=== PATIENT | male | born 1995 | race African-American/Black ===

== ENCOUNTER 2016-11-23 01:20 | Emergency (ER) | payer MEDICAID ==
[2016-11-23 01:35] VITALS: BP 124/79
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
== END 2016-11-23 05:26 | disposition left against medical advice (07) ==
LOC: ER 01:20
DX: N50.812 Left testicular pain (principal); F17.200 Nicotine dependence, unspecified, uncomplicated
CPT/HCPCS: 76870; 93976; 99281

== ENCOUNTER 2016-12-04 14:48 | Emergency (ER) | payer MEDICAID ==
[2016-12-04 14:56] VITALS: BP 119/74
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
== END 2016-12-04 17:40 | disposition home or self-care (01) ==
LOC: ER 14:48
DX: S39.012A Strain of muscle, fascia and tendon of lower back, initial encounter (principal); N50.812 Left testicular pain; V19.9XXA Pedal cyclist (driver) (passenger) injured in unspecified traffic accident, initial encounter
CPT/HCPCS: 99283

== ENCOUNTER 2017-05-05 09:16 | Emergency (ER) | payer MEDICAID ==
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
[2017-05-05] MEDS ORDERED: PENICILLIN G BENZATHINE 1.2 MILLION UNIT/2 ML DISP.SYRIN IM ONE (11:30)
[2017-05-05 11:53] VITALS: BP 120/79
== END 2017-05-05 11:53 | disposition home or self-care (01) ==
LOC: ER 09:16
DX: J02.0 Streptococcal pharyngitis (principal)
CPT/HCPCS: 99283; 96372; 87880; J0561

== ENCOUNTER 2018-01-07 11:37 | Emergency (ER) | payer MEDICAID ==
[2018-01-07] MEDS ORDERED: HYDROCODONE/ACETAMINOPHEN 5-325 MG TABLET PO ONE (12:06)
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
[2018-01-07] MEDS ORDERED: LIDOCAINE 4%/TETRACAINE 0.5%/EPI 0.18% 5 ML TOPICAL SOLN TOP ONE (14:12)
[2018-01-07] MEDS ORDERED: LIDOCAINE 1% INJ-PF (10 MG/ML) 30 ML SDV INJ ONE (14:13)
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
[2018-01-07 16:03] VITALS: BP 138/72
== END 2018-01-07 16:02 | disposition home or self-care (01) ==
LOC: ER 11:37
DX: L05.01 Pilonidal cyst with abscess (principal); R07.9 Chest pain, unspecified; F17.200 Nicotine dependence, unspecified, uncomplicated; Z82.49 Family history of ischemic heart disease and other diseases of the circulatory system
CPT/HCPCS: 99283; 71046; 10080; A6266; J3490

== ENCOUNTER 2020-06-13 02:08 | Inpatient (IN) | payer SELFPAY ==
[2020-06-13] MEDS ORDERED: PREDNISONE 20 MG TABLET PO ONE (02:36)
[2020-06-13] MEDS ORDERED: IPRATROPIUM/ALBUTEROL 0.5-2.5 MG/3 ML AMPUL NEB ONE (02:36)
[2020-06-13] MEDS: ALBUTEROL SULFATE 0.083% NEB 2.5 MG/3 ML AMPUL NEB SCH ×2 (02:44→03:33)
--- NOTE | 2020-06-13 03:38 | RADIOLOGY REPORT (SQ) ---
CLINICAL HISTORY: cough, SOB COMPARISON: None. TECHNIQUE: XR CHEST 1 VIEW 06/13/2020 2:36 AM CDT FINDINGS: Cardiac silhouette is normal in size. There is large amount of airspace disease throughout the right lung. There is no pleural effusion. There is no pneumothorax. There are no acute osseous findings. IMPRESSION: Extensive right sided pneumonia.
[2020-06-13 04:11] LABS: VENOUS BLOOD BASE EXCESS -2.4 mmol/L; VENOUS BLOOD HCO3 26.8 mmol/L (20-32); VENOUS BLOOD PCO2 64.6 mmHg (35-63); VENOUS BLOOD PH 7.24 (7.30-7.42)
[2020-06-13 04:21] LABS: HEMATOCRIT 49.4 % (37.9-51.0); HEMOGLOBIN 16.9 g/dL (13.5-17.0); MEAN CORPUSCULAR HEMOGLOBIN 28.2 pg (27.0-33.4); MEAN CORPUSCULAR HGB CONC 34.1 g/dL (32.0-36.0); MEAN CORPUSCULAR VOLUME 83 fl (80-97); PLATELET COUNT 294 10^3/uL (150-450); RED BLOOD COUNT 5.97 10^6/uL (4.35-5.55); RED CELL DISTRIBUTION WIDTH 13.1 % (11.5-14.0); WHITE BLOOD COUNT 16.5 10^3/uL (4.0-10.5)
[2020-06-13 04:30] LABS: ALKALINE PHOSPHATASE 63 U/L (38-126); ANION GAP 11 (5-19); ASPARTATE AMINO TRANSFERASE 36 U/L (17-59); BILIRUBIN,DIRECT 0.3 mg/dL (0.0-0.4); BILIRUBIN,TOTAL 0.8 mg/dL (0.2-1.3); BLOOD UREA NITROGEN 13 mg/dL (7-20); CALCIUM 10.1 mg/dL (8.4-10.2); CARBON DIOXIDE 28 mmol/L (22-30); CHLORIDE 103 mmol/L (98-107); GLUCOSE 105 mg/dL (75-110); POTASSIUM 4.4 mmol/L (3.6-5.0); TOTAL PROTEIN 8.3 g/dL (6.3-8.2)
[2020-06-13] MEDS ORDERED: AZITHROMYCIN INJ 500 MG VIAL IV ONE (04:57)
[2020-06-13] MEDS ORDERED: CEFTRIAXONE 1 GM/D5W RTU 1 GM/50 ML RTUPB IV ONE (04:57)
[2020-06-13 04:58] LABS: ABSOLUTE MONOCYTES # (MANUAL) 0.8 10^3/uL (0.1-1.4); BASOPHILS % (MANUAL) 0 % (0-2); EOSINOPHILS % (MANUAL) 0 % (0-6); LYMPHOCYTES % (MANUAL) 6 % (13-45); MONOCYTES % (MANUAL) 5 % (3-13); PLATELET COMMENT ADEQUATE; RBC MORPHOLOGY COMMENT NORMO-CYTIC/CHROMIC; SEGMENTED NEUTROPHILS % (MAN) 89 % (42-78); TOTAL CELLS COUNTED 100
--- NOTE | 2020-06-13 05:05 | ER Document Report ---
ED General - General Chief Complaint: Vomiting Stated Complaint: VOMITING Time Seen by Provider: 06/13/20 04:35 TRAVEL OUTSIDE OF THE [place] IN LAST 30 DAYS: No - HPI Associated symptoms: Chest pain, Chills, Vomiting, Shortness of breath Exacerbated by: Denies Relieved by: Denies Notes: Patient is a 24-year-old male with no significant past medical history who presents with vomiting and shortness of breath. Patient is a very poor historian. He states that he ate pizza today and then began vomiting. States he smoked marijuana today and took an "e" pill. He states he has been coughing for quite a while. He also states that he has felt short of breath. He is unable to elaborate for how long. He denies sick contacts. Patient denies any known COVID contacts. No abdominal pain or urinary symptoms. - Related Data Allergies/Adverse Reactions: No Known Allergies Allergy (Verified 01/07/18 11:56) Past Medical History - Social History Smoking Status: Current Every Day Smoker Family History: CAD, DM, Hyperlipidemia, Hypertension Renal/ Medical History: Denies: Hx Peritoneal Dialysis, Hx Testicular Torsion - Undescended testicles Musculoskeletal Medical History: Reports Hx Arthritis, Reports Hx Musculoskeletal Trauma Traumatic Medical History: Reports: Hx Fractures - knee Past Surgical History: Reports: Hx Oral Surgery, Hx Testicular Surgery - Immunizations Immunizations up to date: Yes Hx Diphtheria, Pertussis, Tetanus Vaccination: Yes Review of Systems - Review of Systems Notes: CONSTITUTIONAL: No fever. Positive for fatigue. SKIN: No rash. HENT: No congestion, ear pain, or sore throat. EYES: No recent vision problems or eye pain. ENDOCRINE: No polyuria or polydipsia. CARDIOVASCULAR: Positive for chest discomfort. RESPIRATORY: Positive for cough and shortness of breath. GASTROINTESTINAL: No abdominal pain. Positive for vomiting. GENITOURINARY: No dysuria. MUSCULOSKELETAL: No joint pain or swelling. LYMPHATIC: No swollen glands. NEUROLOGIC: No seizures. No headache, focal weakness or sensory changes. HEMATOLOGIC: No unusual bruising or bleeding. PSYCHIATRIC: No depression or anxiety. Physical Exam - Vital signs Vitals: Temp 97.4 F 06/13/20 02:09 - Notes Notes: VITAL SIGNS: Low O2 sats on room air. GENERAL: Appears fatigued. HEAD: Normal with no signs of head trauma. EYES: Conjunctiva normal, no discharge. EARS: Hearing grossly intact. NOSE: Normal. NECK: Normal range of motion, no tenderness, supple, no lymphadenopathy, No adenopathy, no JVD. CHEST: Diminished lung sounds on right. CARDIAC: Regular rate and rhythm. S1 and S2, without murmurs, gallops, or rubs. VASCULAR: No Edema. ABDOMEN: Normal and soft with no tenderness, no masses or pulsatile masses. GENITOURINARY: Normal, No tenderness LYMPATHTIC: No lymphadenopathy noted. MUSCULOSKELETAL: Good range of motion of all major joints. Extremities without clubbing, cyanosis or edema. NEUROLOGICAL: Alert and oriented x 3. No focal sensory or strength deficits. Speech normal. Follows commands appropriately. PSYCHIATRIC: Normal Affect, judgement and mood. SKIN: Normal appearance with no rashes or lesions. Course - Re-evaluation Re-evalutation: 06/13/20 05:05 Patient has a significant right-sided pneumonia. He was also noted to be having low O2 sats on room air. He was placed on 2 L nasal cannula. Patient is improved on the 2 L. He has a lactic acidosis. We will treat with antibiotics. Will await the rest the labs. Likely, he will require admission. Patient also has a slightly elevated troponin. His EKG is unremarkable. Patient had an episode of emesis in the ED. This was tested for blood and was positive on the Gastroccult. I discussed with the hospitalist who admit the patient. He was gi alfredo antibiotics and Protonix as well as fluids. 06/13/20 07:05 - Vital Signs Vital signs: Temp Pulse Resp BP Pulse Ox 97.4 F 23 H 140/78 H 93 06/13/20 02:09 06/13/20 05:16 06/13/20 05:16 06/13/20 05:16 - Laboratory Result Diagrams: 06/13/20 03:49 06/13/20 03:49 Laboratory results interpreted by me: 06/13/20 06/13/20 06/13/20 03:49 03:49 03:49 WBC 16.5 H RBC 5.97 H Seg Neuts % (Manual) 89 H Lymphocytes % (Manual) 6 L Abs Neuts (Manual) 14.7 H VBG pH 7.24 L VBG pCO2 64.6 H Lactic Acid Total Protein 8.3 H Urine Protein Urine Glucose (UA) Urine Urobilinogen Urine Ascorbic Acid 06/13/20 06/13/20 03:49 05:26 WBC RBC Seg Neuts % (Manual) Lymphocytes % (Manual) Abs Neuts (Manual) VBG pH VBG pCO2 Lactic Acid 2.5 H Total Protein Urine Protein 100 H Urine Glucose (UA) >=500 H Urine Urobilinogen 2.0 H Urine Ascorbic Acid 40 H - Diagnostic Test Radiology reviewed: Image reviewed, Reports reviewed - EKG Interpretation by Me EKG shows normal: Sinus rhythm Rate: Normal Rhythm: NSR When compared to previous EKG there are: No significant change Additional EKG results interpreted by me: 06/13/20 05:08 EKG interpreted by me. Sinus rhythm at a rate of 71. QTc [address]. [address] changes. No previous EKG available for comparison. Discharge - Discharge Clinical Impression: Elevated troponin Pneumonia Qualifiers: Pneumonia type: due to unspecified organism Laterality: right Lung location: lower lobe of lung Qualified Code(s): J18.9 - Pneumonia, unspecified organism Hematemesis Qualifiers: Nausea presence: with nausea Qualified Code(s): K92.0 - Hematemesis Condition: Serious Disposition: ADMITTED INPATIENT Unit Admitted: [facility]
[2020-06-13] MEDS ORDERED: NORMAL SALINE 1000 ML 1,000 ML IV ONE ×2 (05:31→07:03)
[2020-06-13 06:08] LABS: APPEARANCE,URINE SLIGHTLY-CLOUDY; BILIRUBIN,URINE NEGATIVE (NEGATIVE); COLOR,URINE YELLOW; GLUCOSE, URINE >=500 mg/dL (NEGATIVE); KETONES,URINE NEGATIVE (NEGATIVE); LEUKOCYTE ESTERASE,URINE NEGATIVE (NEGATIVE); NITRITE,URINE NEGATIVE (NEGATIVE); PROTEIN,URINE 100 mg/dL (NEGATIVE); URINE SPECIFIC GRAVITY 1.022
[2020-06-13] MEDS ORDERED: ONDANSETRON HCL INJ/PF 4 MG/2 ML SDV ONE ×2 (06:10→12:22)
[2020-06-13] MEDS ORDERED: ONDANSETRON HCL INJ/PF 4 MG/2 ML SDV IV ONE (06:10)
[2020-06-13 06:13] LABS: URINE AMPHETAMINES SCREEN NEGATIVE; URINE BARBITURATES SCREEN NEGATIVE; URINE BENZODIAZEPINES SCREEN NEGATIVE; URINE COCAINE SCREEN NEGATIVE; URINE METHADONE SCREEN NEGATIVE; URINE PHENCYCLIDINE SCREEN NEGATIVE
[2020-06-13 06:14] LABS: URINE MARIJUANA (THC) SCREEN UNCONFIRMED POSITIVE
[2020-06-13] MEDS ORDERED: PANTOPRAZOLE SODIUM 40 MG VIAL IV ONE (06:31)
--- NOTE | 2020-06-13 07:21 | EKG REPORT ---
SEVERITY:- NORMAL ECG - SINUS RHYTHM : Confirmed by: Filipe Albrecht MD 13-Jun-2020 07:20:02
[2020-06-13] MEDS ORDERED: GUAIFENESIN SYRP 200 MG/10 ML UDC PO PRN (09:22)
[2020-06-13] MEDS ORDERED: IPRATROPIUM/ALBUTEROL 0.5-2.5 MG/3 ML AMPUL NEB PRN (09:22)
[2020-06-13] MEDS ORDERED: ACETAMINOPHEN 325 MG TABLET PO PRN (09:22)
--- NOTE | 2020-06-13 09:22 | PDOC H&P ---
History of Present Illness Admission Date/PCP: 06/13/20 07:18 Patient complains of: Nausea, vomiting, coughing with shortness of breath and right-sided chest pain. 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 He was quite sleepy upon entry to the room. He then began coughing nonstop so it was difficult to obtain much of a history. He does state that he has been feeling sick prior to yesterday. He began vomiting yesterday. He does admit to marijuana use and an "E-pill". Tox screen was positive for opiates and marijuana. Old prescriptions include Adderall which he is no longer taking and there was a prescription for Bactrim which could have been related to the MRSA infection. There is also a prescription for Percocet. He reports not being on any of these medications anymore. He does have a right-sided pneumonia by x-ray as well as an elevated white blood cell count. His lactic acid was slightly elevated. He reports having right-sided chest discomfort especially with coughing and deep breathing. He did test positive for Gastroccult blood. His troponin is slightly elevated as well. He will be admitted as a person under investigation. He will receive IV fluids. With a history of MRSA and possibly VRE he will be on Zyvox as well as azithromycin. We will add melatonin, vitamin D, vitamin C and zinc. I will hold off on ferritin, LDH, CRP and d-dimer testing already being tested for COVID. I will get a d-dimer although full-strength anticoagulation would be contraindicated with possible GI bleeding. Past Medical History Cardiac Medical History: Denies: Congestive Heart Failure, Coronary Artery Disease, Myocardial Infarction Pulmonary Medical History: Reports: Other - Smoker EENT Medical History: Denies: Cataracts, Ears, Nose, Throat Neurological Medical History: Denies: Ischemic CVA, Migraine Endocrine Medical History: Denies: Diabetes Mellitus Type 1, Hypothyroidism Renal/ Medical History: Denies: Chronic Kidney Disease Malignancy Medical History: Reports: None GI Medical History: Denies: Cirrhosis, Diverticulitis, Hiatal Hernia Musculoskeltal Medical History: Reports: Arthritis Skin Medical History: Denies: Eczema, Psoriasis Psychiatric Medical History: Reports: Attention Deficit Hyperactivity Disorder, Substance Abuse, Tobacco Dependency Hematology: Denies: Anemia, Sickle Cell Disease Infectious Medical History: Reports: Methicillin-Resistant Staph Aureus, Vancomycin-Resistant Enterococci Denies: Hepatitis B, Hepatitis C Past Surgical History Past Surgical History: Reports: Other - Per old records oral surgery and testicular surgery Social History Information Source: Patient, [facility] Records Lives with: Other - Unknown Smoking Status: Current Every Day Smoker Electronic Cigarette use?: No Frequency of Alcohol Use: None - Unknown Hx Recreational Drug Use: Yes Drugs: Marijuana, Ecstasy Hx Prescription Drug Abuse: No - Unknown - Advance Directive Resuscitation Status: Full Code Family History Family History: CAD, DM, Hyperlipidemia, Hypertension Parental Family History Reviewed: Yes Children Family History Reviewed: No Sibling(s) Family History Reviewed.: Yes Medication/Allergy Home Medications: Dextroamphetamine/Amphetamine [Adderall Xr 20 mg Capsule] 1 tab PO BID 01/07/18 Oxycodone HCl/Acetaminophen [Percocet 5-325 mg Tablet] 1 - 2 tab PO ASDIR PRN #15 tablet 01/07/18 Sulfamethoxazole/Trimethoprim [Bactrim Ds Tablet] 1 each PO BID #20 tablet 01/07/18 Allergies/Adverse Reactions: No Known Allergies Allergy (Verified 06/13/20 08:49) Review of Systems All systems: reviewed and no additional remarkable complaints except as stated Constitutional: PRESENT: fatigue Nose, Mouth, and Throat: PRESENT: sore throat Cardiovascular: PRESENT: chest pain Respiratory: PRESENT: cough, other Gastrointestinal: PRESENT: nausea, vomiting Psychiatric: PRESENT: other - Somnolent Physical Exam Vital Signs: Temp Pulse Resp BP Pulse Ox 97.4 F 16 109/64 99 06/13/20 02:09 06/13/20 08:00 06/13/20 07:05 06/13/20 08:00 Intake & Output 06/12/20 06/13/20 06/14/20 06:59 06:59 06:59 Intake Total 1050 1000 Balance 1050 1000 Weight 81.9 kg General appearance: PRESENT: cooperative - As best he could with intractable coughing, well-developed, other - Moderate distress with intractable coughing Head exam: PRESENT: atraumatic, normocephalic Eye exam: PRESENT: conjunctival injection, EOMI. ABSENT: scleral icterus Ear exam: PRESENT: normal external ear exam. ABSENT: bleeding, drainage Mouth exam: PRESENT: moist, tongue midline Teeth exam: PRESENT: poor dentation Throat exam: PRESENT: post pharyngeal erythema. ABSENT: tonsillar exudate Neck exam: ABSENT: carotid bruit, JVD, lymphadenopathy, tenderness, tracheostomy Respiratory exam: PRESENT: rhonchi - Diffuse rhonchi on the right, symmetrical. ABSENT: rales, retraction, stridor, tachypnea, wheezes Cardiovascular exam: PRESENT: RRR, +S1, +S2. ABSENT: bradycardia, diastolic murmur, irregular rhythm, systolic murmur, tachycardia Pulses: PRESENT: normal radial pulses, normal dorsalis pedis pul GI/Abdominal exam: PRESENT: normal bowel sounds, soft. ABSENT: distended, guarding, tenderness Rectal exam: PRESENT: deferred Gentrourinary exam: ABSENT: indwelling catheter Extremities exam: PRESENT: full ROM. ABSENT: joint swelling, pedal edema Musculoskeletal exam: PRESENT: ambulatory, full ROM, normal inspection. ABSENT: deformity, dislocation Neurological exam: PRESENT: awake, oriented to person, oriented to place, oriented to time, oriented to situation, CN II-XII grossly intact. ABSENT: alert - Still slightly sleepy, altered Psychiatric exam: PRESENT: flat affect. ABSENT: agitated, anxious Focused psych exam: ABSENT: delusional, paranoid, restlessness Skin exam: PRESENT: dry, intact, normal color, warm. ABSENT: abrasion, erythema, jaundice, rash, vesicles Results Laboratory Results: 06/13/20 03:49 06/13/20 03:49 06/13/20 06/13/20 06/13/20 03:49 03:49 03:49 WBC 16.5 H RBC 5.97 H Hgb 16.9 Hct 49.4 MCV 83 MCH 28.2 MCHC 34.1 RDW 13.1 Plt Count 294 Seg Neutrophils % Not Reportable VBG pH 7.24 L VBG pCO2 64.6 H VBG HCO3 26.8 VBG Base Excess -2.4 Sodium 142.4 Potassium 4.4 Chloride 103 Carbon Dioxide 28 Anion Gap 11 BUN 13 Creatinine 0.72 Est GFR ( Amer) > 60 Glucose 105 Lactic Acid Calcium 10.1 Total Bilirubin 0.8 AST 36 Alkaline Phosphatase 63 Total Protein 8.3 H Albumin 5.0 Urine Color Urine Appearance Urine pH Ur Specific [place] Urine Protein Urine Glucose (UA) Urine Ketones Urine Blood Urine Nitrite Ur Leukocyte Esterase Urine WBC (Auto) Urine RBC (Auto) 06/13/20 06/13/20 03:49 05:26 WBC RBC Hgb Hct MCV MCH MCHC RDW Plt Count Seg Neutrophils % VBG pH VBG pCO2 VBG HCO3 VBG Base Excess Sodium Potassium Chloride Carbon Dioxide Anion Gap BUN Creatinine Est GFR ( Amer) Glucose Lactic Acid 2.5 H Calcium Total Bilirubin AST Alkaline Phosphatase Total Protein Albumin Urine Color YELLOW Urine Appearance SLIGHTLY-CLOUDY Urine pH 5.0 Ur Specific [place] 1.022 Urine Protein 100 H Urine Glucose (UA) >=500 H Urine Ketones NEGATIVE Urine Blood NEGATIVE Urine Nitrite NEGATIVE Ur Leukocyte Esterase NEGATIVE Urine WBC (Auto) 8 Urine RBC (Auto) 1 06/13/20 03:49 Troponin I 0.059 Impressions: Chest X-Ray 06/13/20 02:36 IMPRESSION: Extensive right sided pneumonia. Assessment and Plan - Diagnosis (1) Pneumonia Qualifiers: Pneumonia type: due to unspecified organism Laterality: right Lung location: lower lobe of lung Qualified Code(s): J18.9 - Pneumonia, unspecified organism Is this a current diagnosis for this admission?: Yes Plan: The patient was vomiting and so aspiration pneumonia is a consideration it appears to be more of an infectious pneumonia. 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 We will also add zinc, vitamin C, vitamin D and melatonin. We will also add cough suppressant and Chloraseptic. (2) Suspected COVID-19 virus infection Is this a current diagnosis for this admission?: Yes Plan: Based on decreased lymphocytes and x-ray. Other screening chemistries not performed. No full-strength anticoagulation at this time due to GI bleeding. (3) Pleuritic chest pain Is this a current diagnosis for this admission?: Yes Plan: Secondary to pneumonia. Will use anti-inflammatories and monitor closely for any increased bleeding. (4) Elevated troponin Is this a current diagnosis for this admission?: Yes Plan: Possibly due to illicit substance and/or infection. EKG was unremarkable. Obtain serial troponins. (5) Hematemesis Qualifiers: Nausea presence: with nausea Qualified Code(s): K92.0 - Hematemesis Is this a current diagnosis for this admission?: Yes Plan: Gastroccult positive. Will monitor for devin hematemesis. (6) Lactic acidemia Is this a current diagnosis for this admission?: Yes Plan: Aggressive IV fluids and monitor lactic acid level. (7) Cannabis dependence Is this a current diagnosis for this admission?: Yes Plan: Possibly contributing to nausea and vomiting. Monitor and provide supportive care (8) Ecstasy abuse Is this a current diagnosis for this admission?: Yes Plan: Unsure of actual ecstasy use however patient admitted to taking an E pill. Monitor closely for any withdrawal and provide supportive care. - Time Time Spent with patient: 35 or more minutes Smoking Cessation Education: 3 to 10 minutes Medications reviewed and adjusted accordingly: Yes Anticipated Discharge Disposition: Home, Self Care Anticipated Discharge Timeframe: Within 96 hours - Inpatient Certification Based on my medical assessment, after consideration of the patient's comorbidities, presenting symptoms, or acuity I expect that the services needed warrant INPATIENT care.: Yes I certify that my determination is in accordance with my understanding of Medicare's requirements for reasonable and necessary INPATIENT services [42 CFR 412.3e].: Yes Medical Necessity: Need Close Monitoring Due to Risk of Patient Decompensation, Need For IV Fluids, Need For Continuous Telemetry Monitoring, Need for IV Antibiotics Post Hospital Care: D/C or Transfer Summary
[2020-06-13] MEDS ORDERED: PHENOL/SODIUM PHENOLATE 100 SPRAY/177 ML BOTTLE PO PRN (09:31)
[2020-06-13] MEDS ORDERED: KETOROLAC TROMETHAMINE INJ/PF 30 MG/1 ML SDV IV PRN (09:31)
[2020-06-13] MEDS ORDERED: ALBUTEROL SULFATE HFA (90 MCG/PUFF) 8 GM MDI IH PRN (09:34)
[2020-06-13] MEDS: DEXAMETHASONE SOD PHOSPHATE INJ 4 MG/1 ML VIAL IV SCH (10:14)
[2020-06-13] MEDS: ZINC SULFATE 220 MG CAPSULE PO SCH (10:15)
[2020-06-13] MEDS: RINGERS SOLUTION,LACTATED 1,000 ML IV PRN ×2 (10:15→20:00)
[2020-06-13] MEDS: GUAIFENESIN 600 MG TABLET.SA PO SCH ×2 (10:15→22:05)
[2020-06-13] MEDS: ASCORBIC ACID 500 MG TABLET PO SCH ×2 (10:15→17:00)
[2020-06-13] MEDS: CHOLECALCIFEROL (D3) 1,000 UNIT (25 MCG) TABLET PO SCH (10:15)
[2020-06-13] MEDS: LINEZOLID 600 MG/300 ML RTUPB IV SCH ×2 (11:04→22:05)
[2020-06-13] MEDS ORDERED: ONDANSETRON HCL INJ/PF 4 MG/2 ML SDV IV PRN (12:49)
[2020-06-13] MEDS: PANTOPRAZOLE SODIUM 40 MG TABLET.DR PO SCH (17:00)
[2020-06-13] MEDS: MELATONIN 5 MG TABLET PO SCH (22:05)
[2020-06-14] MEDS: AZITHROMYCIN 500 MG in DEXTROSE 5%-WATER 250 ML IV SCH (05:41)
[2020-06-14] MEDS: PANTOPRAZOLE SODIUM 40 MG TABLET.DR PO SCH ×2 (05:42→17:33)
[2020-06-14 06:10] LABS: ABSOLUTE LYMPHOCYTES (AUTO) 1.7 10^3/uL (0.5-4.7); ABSOLUTE MONOCYTES (AUTO) 0.6 10^3/uL (0.1-1.4); ABSOLUTE NEUT (AUTO) 15.5 10^3/uL (1.7-8.2); BASOPHILS % (AUTO) 0.1 % (0-2); EOSINOPHILS % (AUTO) 0.1 % (0-6); HEMATOCRIT 43.2 % (37.9-51.0); LYMPHOCYTES % (AUTO) 9.5 % (13-45); MEAN CORPUSCULAR HEMOGLOBIN 27.9 pg (27.0-33.4); MEAN CORPUSCULAR VOLUME 82 fl (80-97); MONOCYTES % (AUTO) 3.1 % (3-13); PLATELET COUNT 266 10^3/uL (150-450); RED BLOOD COUNT 5.25 10^6/uL (4.35-5.55); SEGMENTED NEUTROPHILS % (AUTO) 87.2 % (42-78); TOTAL CELLS COUNTED % (AUTO) 100 %; WHITE BLOOD COUNT 17.8 10^3/uL (4.0-10.5)
[2020-06-14] MEDS: RINGERS SOLUTION,LACTATED 1,000 ML IV PRN ×2 (06:11→13:36)
[2020-06-14 06:13] LABS: HEMOGLOBIN 14.7 g/dL (13.5-17.0)
[2020-06-14 06:16] LABS: ANION GAP 8 (5-19); BLOOD UREA NITROGEN 12 mg/dL (7-20); CALCIUM 9.8 mg/dL (8.4-10.2); CARBON DIOXIDE 28 mmol/L (22-30); CHLORIDE 105 mmol/L (98-107); GLUCOSE 103 mg/dL (75-110)
[2020-06-14] MEDS: ASCORBIC ACID 500 MG TABLET PO SCH (09:44)
[2020-06-14] MEDS: ZINC SULFATE 220 MG CAPSULE PO SCH (09:44)
[2020-06-14] MEDS: GUAIFENESIN 600 MG TABLET.SA PO SCH ×2 (09:44→21:21)
[2020-06-14] MEDS: LINEZOLID 600 MG/300 ML RTUPB IV SCH ×2 (09:44→21:22)
[2020-06-14] MEDS: DEXAMETHASONE SOD PHOSPHATE INJ 4 MG/1 ML VIAL IV SCH (09:44)
[2020-06-14] MEDS: CHOLECALCIFEROL (D3) 1,000 UNIT (25 MCG) TABLET PO SCH (09:44)
--- NOTE | 2020-06-14 16:23 | PDOC PROGRESS REPORT ---
Subjective Progress Note for:: 06/14/20 Subjective:: Patient is actually COVID negative. He was quite happy to find that out. This makes his right lung pneumonia more likely aspiration with the recent history of nausea and vomiting. He still has right-sided pleuritic chest pain. Reason For Visit: PNEUMONIA, PUI COVID-19, ELEVATED TROPONIN, LACTIC Physical Exam Vital Signs: Temp Pulse Resp BP Pulse Ox 98.7 F 55 L 18 119/63 100 06/14/20 11:08 06/14/20 14:00 06/14/20 11:08 06/14/20 11:08 06/14/20 11:08 Intake & Output 06/13/20 06/14/20 06/15/20 06:59 06:59 06:59 Intake Total 1050 3850 1695 Balance 1050 3850 1695 Weight 81.9 kg 80.6 kg General appearance: PRESENT: cooperative, mild distress Head exam: PRESENT: atraumatic, normocephalic Eye exam: PRESENT: conjunctiva pink. ABSENT: scleral icterus Ear exam: PRESENT: normal external ear exam. ABSENT: bleeding, drainage Mouth exam: PRESENT: moist, tongue midline Respiratory exam: PRESENT: rhonchi - Right base, symmetrical, unlabored. ABSENT: accessory muscle use, prolonged expiratory phas, rales, tachypnea, wheezes Cardiovascular exam: PRESENT: RRR, +S1, +S2. ABSENT: bradycardia, diastolic murmur, irregular rhythm, systolic murmur, tachycardia GI/Abdominal exam: PRESENT: normal bowel sounds, soft. ABSENT: distended, guarding, tenderness Rectal exam: PRESENT: deferred Gentrourinary exam: ABSENT: indwelling catheter Extremities exam: PRESENT: full ROM. ABSENT: calf tenderness, pedal edema Musculoskeletal exam: PRESENT: ambulatory, normal inspection. ABSENT: deformity, dislocation Neurological exam: PRESENT: alert, awake, oriented to person, oriented to place, oriented to time, oriented to situation, CN II-XII grossly intact. ABSENT: altered Psychiatric exam: PRESENT: appropriate affect. ABSENT: agitated, anxious Focused psych exam: ABSENT: delusional, paranoid, restlessness Skin exam: PRESENT: dry, normal color, warm. ABSENT: rash Results Laboratory Results: 06/14/20 05:17 06/14/20 05:17 06/14/20 06/14/20 05:17 05:17 WBC 17.8 H RBC 5.25 Hgb 14.7 D Hct 43.2 MCV 82 MCH 27.9 MCHC 34.0 RDW 13.0 Plt Count 266 Seg Neutrophils % 87.2 H Sodium 141.2 Potassium 4.0 Chloride 105 Carbon Dioxide 28 Anion Gap 8 BUN 12 Creatinine 0.74 Est GFR ( Amer) > 60 Glucose 103 Calcium 9.8 Magnesium 2.0 06/13/20 06/13/20 03:49 15:16 Troponin I 0.059 0.015 Impressions: Chest X-Ray 06/13/20 02:36 IMPRESSION: Extensive right sided pneumonia. Assessment and Plan - Diagnosis (1) Acute respiratory failure with hypoxia Is this a current diagnosis for this admission?: Yes Plan: 06/14/2020-secondary to pneumonia. Oxygen saturation was 100% on 3 L nasal cannula. Nursing is going to begin tapering his oxygen to off. (2) Pneumonia Qualifiers: Pneumonia type: aspiration pneumonia Laterality: right Lung location: lower lobe of lung Is this a current diagnosis for this admission?: Yes Plan: The patient was vomiting and so aspiration pneumonia is a consideration it appears to be more of an infectious pneumonia. 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 We will also add zinc, vitamin C, vitamin D and melatonin. We will also add cough suppressant and Chloraseptic. 06/14/2020-COVID negative. More likely aspiration from the nausea and vomiting. Community-acquired pneumonia cannot be ruled out. We will change azithromycin to doxycycline but continue Zyvox considering his infection history. (3) Suspected COVID-19 virus infection Is this a current diagnosis for this admission?: Yes Plan: Based on decreased lymphocytes and x-ray. Other screening chemistries not performed. No full-strength anticoagulation at this time due to GI bleeding. 06/14/2020-COVID negative (4) Pleuritic chest pain Is this a current diagnosis for this admission?: Yes Plan: Secondary to pneumonia. Will use anti-inflammatories and monitor closely for a ny increased bleeding. 06/14/2020-patient only had 1 dose of IV Toradol. Will initiate a trial of a nonsteroidal anti-inflammatory on a scheduled basis to see if this helps. (5) Elevated troponin Is this a current diagnosis for this admission?: Yes Plan: Possibly due to illicit substance and/or infection. EKG was unremarkable. Obtain serial troponins. 06/14/2020-troponins normalized. Likely from the stress of infection. (6) Hematemesis Qualifiers: Nausea presence: with nausea Qualified Code(s): K92.0 - Hematemesis Is this a current diagnosis for this admission?: Yes Plan: Gastroccult positive. Will monitor for devin hematemesis. 06/14/2020-resolved (7) Lactic acidemia Is this a current diagnosis for this admission?: Yes Plan: Aggressive IV fluids and monitor lactic acid level. 06/14/2020-secondary to hypoxic respiratory failure from pneumonia. Resolved with IV fluids (8) Cannabis dependence Is this a current diagnosis for this admission?: Yes Plan: Possibly contributing to nausea and vomiting. Monitor and provide supportive care (9) Ecstasy abuse Is this a current diagnosis for this admission?: Yes Plan: Unsure of actual ecstasy use however patient admitted to taking an E pill. Monitor closely for any withdrawal and provide supportive care. - Time Time Spent with patient: 15-24 minutes Medications reviewed and adjusted accordingly: Yes Anticipated Discharge Disposition: Home, Self Care Anticipated Discharge Timeframe: within 72 hours
[2020-06-14] MEDS: NAPROXEN 250 MG TABLET PO SCH (17:33)
[2020-06-14] MEDS: MELATONIN 5 MG TABLET PO SCH (21:21)
[2020-06-15] MEDS: PANTOPRAZOLE SODIUM 40 MG TABLET.DR PO SCH (05:10)
[2020-06-15] MEDS: AZITHROMYCIN 500 MG in DEXTROSE 5%-WATER 250 ML IV SCH (05:10)
[2020-06-15] MEDS: RINGERS SOLUTION,LACTATED 1,000 ML IV PRN (05:10)
[2020-06-15 05:22] VITALS: BP 123/61
[2020-06-15 06:55] LABS: ABSOLUTE BASOPHILS # (AUTO) 0.1 10^3/uL (0.0-0.2); ABSOLUTE EOSINOPHILS # (AUTO) 0.1 10^3/uL (0.0-0.6); ABSOLUTE LYMPHOCYTES (AUTO) 2.8 10^3/uL (0.5-4.7); ABSOLUTE NEUT (AUTO) 11.3 10^3/uL (1.7-8.2); BASOPHILS % (AUTO) 0.3 % (0-2); EOSINOPHILS % (AUTO) 0.4 % (0-6); HEMATOCRIT 37.1 % (37.9-51.0); HEMOGLOBIN 12.7 g/dL (13.5-17.0); LYMPHOCYTES % (AUTO) 18.4 % (13-45); MEAN CORPUSCULAR HEMOGLOBIN 28.1 pg (27.0-33.4); MEAN CORPUSCULAR HGB CONC 34.2 g/dL (32.0-36.0); MEAN CORPUSCULAR VOLUME 82 fl (80-97); MONOCYTES % (AUTO) 6.5 % (3-13); PLATELET COUNT 239 10^3/uL (150-450); RED BLOOD COUNT 4.51 10^6/uL (4.35-5.55); RED CELL DISTRIBUTION WIDTH 13.1 % (11.5-14.0); SEGMENTED NEUTROPHILS % (AUTO) 74.4 % (42-78); TOTAL CELLS COUNTED % (AUTO) 100 %; WHITE BLOOD COUNT 15.1 10^3/uL (4.0-10.5)
[2020-06-15] MEDS: NAPROXEN 250 MG TABLET PO SCH (08:00)
[2020-06-15] MEDS: LINEZOLID 600 MG/300 ML RTUPB IV SCH (09:34)
[2020-06-15] MEDS: DEXAMETHASONE SOD PHOSPHATE INJ 4 MG/1 ML VIAL IV SCH (09:35)
[2020-06-15] MEDS: GUAIFENESIN 600 MG TABLET.SA PO SCH (09:35)
--- NOTE | 2020-06-15 09:46 | PDOC DISCHARGE SUMMARY ---
Impression - Admit/DC Date/PCP Admission Date/Primary Care Provider: 06/13/20 07:18 Discharge Date: 06/15/20 - Discharge Diagnosis (1) Acute respiratory failure with hypoxia Is this a current diagnosis for this admission?: Yes (2) Pneumonia Is this a current diagnosis for this admission?: Yes (3) Suspected COVID-19 virus infection Is this a current diagnosis for this admission?: Yes (4) Pleuritic chest pain Is this a current diagnosis for this admission?: Yes (5) Elevated troponin Is this a current diagnosis for this admission?: Yes (6) Hematemesis Is this a current diagnosis for this admission?: Yes (7) Lactic acidemia Is this a current diagnosis for this admission?: Yes (8) Cannabis dependence Is this a current diagnosis for this admission?: Yes (9) Ecstasy abuse Is this a current diagnosis for this admission?: Yes - Additional Information Resuscitation Status: Full Code Discharge Diet: As Tolerated Discharge Activity: Activity As Tolerated Referrals: [facility] [Outside] (PATIENT WILL HAVE TO CALL CLINIC TO ESTABLISH CARE. ONCE ESTABLISHED THE STAFF WILL SCHEDULE A TELE HEALTH APPT.) Prescriptions: Codeine Phosphate/Guaifenesin [Guaifen-Codeine 200-20 mg/10Ml] 10 ml PO Q8 PRN #150 ml PRN Reason: Albuterol Sulfate [Ventolin Hfa 8 gm Mdi] 2 puff IH Q4HP PRN #1 inhaler PRN Reason: Shortness Of Breath Doxycycline Hyclate [Vibramycin 100 mg Tablet] 100 mg PO BID #20 tablet Home Medications: Albuterol Sulfate [Ventolin Hfa 8 gm Mdi] 2 puff IH Q4HP PRN #1 inhaler 06/15/20 Codeine Phosphate/Guaifenesin [Guaifen-Codeine 200-20 mg/10Ml] 10 ml PO Q8 PRN #150 ml 06/15/20 Doxycycline Hyclate [Vibramycin 100 mg Tablet] 100 mg PO BID #20 tablet 06/15/20 Phenol/Sodium Phenolate [Chloraseptic Sore Throat [place] 177 ml] 2 spray PO PRN PRN bottle 06/15/20 History of Present Illiness History of Present Illness: GRISEL RIBERA is a 24 year old male with a 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 He was quite sleepy upon entry to the room. He then began coughing nonstop so it was difficult to obtain much of a history. He does state that he has been feeling sick prior to yesterday. He began vomiting yesterday. He does admit to marijuana use and an "E-pill". Tox screen was positive for opiates and marijuana. Old prescriptions include Adderall which he is no longer taking and there was a prescription for Bactrim which could have been related to the MRSA infection. There is also a prescript ion for Percocet. He reports not being on any of these medications anymore. He does have a right-sided pneumonia by x-ray as well as an elevated white blood cell count. His lactic acid was slightly elevated. He reports having right-sided chest discomfort especially with coughing and deep breathing. He did test positive for Gastroccult blood. His troponin is slightly elevated as well. He will be admitted as a person under investigation. He will receive IV fluids. With a history of MRSA and possibly VRE he will be on Zyvox as well as azithromycin. We will add melatonin, vitamin D, vitamin C and zinc. I will hold off on ferritin, LDH, CRP and d-dimer testing already being tested for COVID. I will get a d-dimer although full-strength anticoagulation would be contraindicated with possible GI bleeding. Hospital Course Hospital Course: The patient had a relatively unremarkable hospital course. With fluids and antibiotics his white blood cell count normalized. He was able to taper to room air. He still has some pleuritic chest pain but we will treat this with anti- inflammatories as an outpatient. He has been on room air since last night and is anxious for home. Physical Exam Vital Signs: Temp Pulse Resp BP Pulse Ox 97.7 F 44 L 16 123/61 95 06/15/20 00:21 06/15/20 02:00 06/15/20 00:21 06/15/20 00:21 06/15/20 00:21 Intake & Output 06/14/20 06/15/20 06/16/20 06:59 06:59 06:59 Intake Total 3850 2245 Balance 3850 2245 Weight 80.6 kg 81.4 kg General appearance: PRESENT: no acute distress Respiratory exam: PRESENT: rales - Faint at right base, symmetrical, unlabored. ABSENT: tachypnea, wheezes Cardiovascular exam: PRESENT: RRR, +S1, +S2. ABSENT: bradycardia, diastolic murmur, systolic murmur, tachycardia GI/Abdominal exam: PRESENT: normal bowel sounds, soft. ABSENT: distended, guarding Rectal exam: PRESENT: deferred Gentrourinary exam: ABSENT: indwelling catheter Extremities exam: PRESENT: full ROM. ABSENT: joint swelling, pedal edema Musculoskeletal exam: PRESENT: ambulatory, normal inspection. ABSENT: defor mity, dislocation Neurological exam: PRESENT: alert, awake, oriented to person, oriented to place, oriented to time, oriented to situation, CN II-XII grossly intact. ABSENT: altered Psychiatric exam: PRESENT: appropriate affect. ABSENT: agitated, anxious Results Laboratory Results: WBC 15.1 10^3/uL (4.0-10.5) H 06/15/20 05:27 RBC 4.51 10^6/uL (4.35-5.55) 06/15/20 05:27 Hgb 12.7 g/dL (13.5-17.0) L 06/15/20 05:27 Hct 37.1 % (37.9-51.0) L 06/15/20 05:27 MCV 82 fl (80-97) 06/15/20 05:27 MCH 28.1 pg (27.0-33.4) 06/15/20 05:27 MCHC 34.2 g/dL (32.0-36.0) 06/15/20 05:27 RDW 13.1 % (11.5-14.0) 06/15/20 05:27 Plt Count 239 10^3/uL (150-450) 06/15/20 05:27 Lymph % (Auto) 18.4 % (13-45) 06/15/20 05:27 [place] % (Auto) 6.5 % (3-13) 06/15/20 05:27 Eos % (Auto) 0.4 % (0-6) 06/15/20 05:27 Baso % (Auto) 0.3 % (0-2) 06/15/20 05:27 Absolute Neuts (auto) 11.3 10^3/uL (1.7-8.2) H 06/15/20 05:27 Absolute Lymphs (auto) 2.8 10^3/uL (0.5-4.7) 06/15/20 05:27 Absolute Monos (auto) 1.0 10^3/uL (0.1-1.4) 06/15/20 05:27 Absolute Eos (auto) 0.1 10^3/uL (0.0-0.6) 06/15/20 05:27 Absolute Basos (auto) 0.1 10^3/uL (0.0-0.2) 06/15/20 05:27 Total Counted 100 06/13/20 03:49 Seg Neutrophils % 74.4 % (42-78) 06/15/20 05:27 Seg Neuts % (Manual) 89 % (42-78) H 06/13/20 03:49 Lymphocytes % (Manual) 6 % (13-45) L 06/13/20 03:49 Monocytes % (Manual) 5 % (3-13) 06/13/20 03:49 Eosinophils % (Manual) 0 % (0-6) 06/13/20 03:49 Basophils % (Manual) 0 % (0-2) 06/13/20 03:49 Abs Neuts (Manual) 14.7 10^3/uL (1.7-8.2) H 06/13/20 03:49 Abs Lymphs (Manual) 1.0 10^3/uL (0.5-4.7) 06/13/20 03:49 Abs Monocytes (Manual) 0.8 10^3/uL (0.1-1.4) 06/13/20 03:49 Absolute Eos (Manual) 0.0 10^3/uL (0.0-0.6) 06/13/20 03:49 Abs Basophils (Manual) 0.0 10^3/uL (0.0-0.2) 06/13/20 03:49 Platelet Comment ADEQUATE 06/13/20 03:49 RBC Morph Comment NORMO-CYTIC/CHROMIC 06/13/20 03:49 VBG pH 7.24 (7.30-7.42) L 06/13/20 03:49 VBG pCO2 64.6 mmHg (35-63) H 06/13/20 03:49 VBG HCO3 26.8 mmol/L (20-32) 06/13/20 03:49 VBG Base Excess -2.4 mmol/L 06/13/20 03:49 Sodium 141.2 mmol/L (137-145) 06/14/20 05:17 Potassium 4.0 mmol/L (3.6-5.0) 06/14/20 05:17 Chloride 105 mmol/L (98-107) 06/14/20 05:17 Carbon Dioxide 28 mmol/L (22-30) 06/14/20 05:17 Anion Gap 8 (5-19) 06/14/20 05:17 BUN 12 mg/dL (7-20) 06/14/20 05:17 Creatinine 0.74 mg/dL (0.52-1.25) 06/14/20 05:17 Est GFR ( Amer) > 60 (>60) 06/14/20 05:17 Est GFR (MDRD) Non-Af > 60 (>60) 06/14/20 05:17 Glucose 103 mg/dL (75-110) 06/14/20 05:17 Lactic Acid 1.7 mmol/L (0.7-2.1) 06/13/20 15:16 Calcium 9.8 mg/dL (8.4-10.2) 06/14/20 05:17 Magnesium 2.0 mg/dL (1.6-2.3) 06/14/20 05:17 Total Bilirubin 0.8 mg/dL (0.2-1.3) 06/13/20 03:49 Direct Bilirubin 0.3 mg/dL (0.0-0.4) 06/13/20 03:49 Neonat Total Bilirubin Not Reportable 06/13/20 03:49 Neonat Direct Bilirubin Not Reportable 06/13/20 03:49 Neonat Indirect Bili Not Reportable 06/13/20 03:49 AST 36 U/L (17-59) 06/13/20 03:49 ALT 18 U/L (<50) 06/13/20 03:49 Alkaline Phosphatase 63 U/L (38-126) 06/13/20 03:49 Troponin I 0.015 ng/mL 06/13/20 15:16 Total Protein 8.3 g/dL (6.3-8.2) H 06/13/20 03:49 Albumin 5.0 g/dL (3.5-5.0) 06/13/20 03:49 Urine Color YELLOW 06/13/20 05:26 Urine Appearance SLIGHTLY-CLOUDY 06/13/20 05:26 Urine pH 5.0 (5.0-9.0) 06/13/20 05:26 Ur Specific [place] 1.022 06/13/20 05:26 Urine Protein 100 mg/dL (NEGATIVE) H 06/13/20 05:26 Urine Glucose (UA) >=500 mg/dL (NEGATIVE) H 06/13/20 05:26 Urine Ketones NEGATIVE mg/dL (NEGATIVE) 06/13/20 05:26 Urine Blood NEGATIVE (NEGATIVE) 06/13/20 05:26 Urine Nitrite NEGATIVE (NEGATIVE) 06/13/20 05:26 Urine Bilirubin NEGATIVE (NEGATIVE) 06/13/20 05:26 Urine Urobilinogen 2.0 mg/dL (<2.0) H 06/13/20 05:26 Ur Leukocyte Esterase NEGATIVE (NEGATIVE) 06/13/20 05:26 Urine WBC (Auto) 8 /HPF 06/13/20 05:26 Urine RBC (Auto) 1 /HPF 06/13/20 05:26 U Hyaline Cast (Auto) 9 /LPF 06/13/20 05:26 Urine Bacteria (Auto) TRACE /HPF 06/13/20 05:26 Squamous Epi Cells Auto 1 /HPF 06/13/20 05:26 Urine Mucus (Auto) MANY /LPF 06/13/20 05:26 Urine Ascorbic Acid 40 (NEGATIVE) H 06/13/20 05:26 POC Gastric Occult Bld POSITIVE (NEGATIVE) 06/13/20 06:19 Urine Opiates Screen UNCONFIRMED POSITIVE 06/13/20 05:26 Urine Methadone Screen NEGATIVE 06/13/20 05:26 Ur Barbiturates Screen NEGATIVE 06/13/20 05:26 Ur Phencyclidine Scrn NEGATIVE 06/13/20 05:26 Ur Amphetamines Screen NEGATIVE 06/13/20 05:26 U Benzodiazepines Scrn NEGATIVE 06/13/20 05:26 Urine Cocaine Screen NEGATIVE 06/13/20 05:26 U Marijuana (THC) Screen UNCONFIRMED POSITIVE 06/13/20 05:26 COVID-19 Source See comment 06/13/20 05:33 COVID-19 (LEELA) Not Detected (Not Detect) 06/13/20 05:33 06/13/20 06/13/20 03:49 15:16 Troponin I 0.059 0.015 Impressions: Chest X-Ray 06/13/20 02:36 IMPRESSION: Extensive right sided pneumonia. Plan Health Concerns: Discussed cessation of marijuana and ecstasy as well as any tobacco products Plan of Treatment: As outlined above Goals: Lifestyle modification. Complete resolution of pneumonia. Establish with primary care provider. Time Spent: Greater than 30 Minutes Stroke Is this a Stroke Patient?: No Acute Heart Failure Is this a Heart Failure Patient?: No
== END 2020-06-15 10:10 | disposition home or self-care (01) | DRG 177 ==
LOC: ER 02:08 → EH 07:18 → 3N 10:07 → 4W 06-14 14:58
PROVIDERS: ADMIT Emergency Medicine; ATTEND Hospitalist
DX: J69.0 Pneumonitis due to inhalation of food and vomit (principal); J96.01 Acute respiratory failure with hypoxia; K92.0 Hematemesis; E87.2 Acidosis; R07.81 Pleurodynia; F12.20 Cannabis dependence, uncomplicated; F16.10 Hallucinogen abuse, uncomplicated; R79.89 Other specified abnormal findings of blood chemistry; F17.200 Nicotine dependence, unspecified, uncomplicated; R19.5 Other fecal abnormalities; Z20.828 Contact with and (suspected) exposure to other viral communicable diseases; Z86.14 Personal history of Methicillin resistant Staphylococcus aureus infection; Z83.3 Family history of diabetes mellitus; Z82.49 Family history of ischemic heart disease and other diseases of the circulatory system
CPT/HCPCS: 36415; 71045; 80048; 80053; 80307; 81001; 82271; 82803; 83605; 83735; 84484; 85025; 87040; 87635; 93005; 93010; 94640; 96361; 96365; 96367; 96375; 99285; C9113; C9803; J0456; J0696; J1100; J1885; J2020; J2405; J3490; J7030; J7060; J7120; J7613